=== PATIENT | female | born 2000 | race African-American/Black ===

== ENCOUNTER 2019-08-12 17:25 | Emergency (ER) | payer OTHER ==
[2019-08-12 17:38] VITALS: BP 154/118
--- NOTE | 2019-08-12 18:22 | ER Document Report ---
HPI - HPI Time Seen by Provider: 08/12/19 18:12 Pain Level: 0 Context: Patient is a G1, P0, 22-week 19-year-old female who presents emergency department wanting an ultrasound for a regular check of OB. Patient states that she had 1 small pain to the left side of her abdomen yesterday. States that has gone away. Denies any pain at this time. Denies any vaginal discharge, bleeding, dysuria, or any other symptoms. Patient reported that she was in the emergency department for routine ultrasound. - ROS Systems Reviewed and Negative: Yes All other systems reviewed and negative - CONSTITUTIONAL Constitutional: DENIES: Fever, Chills - EENT EENT: DENIES: Sore Throat, Ear Pain, Nasal Drainage-Clear, Congestion, Eye problems - NEURO Neurology: DENIES: Headache, Weakness, Vision blurred, Dizzinesss / Vertigo - CARDIOVASCULAR Cardiovascular: DENIES: Chest pain - RESPIRATORY Respiratory: DENIES: Trouble Breathing, Coughing - GASTROINTESTINAL Gastrointestinal: DENIES: Abdominal Pain, Nausea, Patient vomiting - URINARY Urinary: DENIES: Dysuria, Urgency, Frequency - REPRODUCTIVE LMP: 2019 Reproductive: REPORTS: : - MUSCULOSKELETAL Musculoskeletal: DENIES: Extremity pain - DERM Skin Color: Normal Skin Problems: None Past Medical History - General Information source: Patient - Social History Smoking Status: Never Smoker Chew tobacco use (# tins/day): No Frequency of alcohol use: None Drug Abuse: None Family History: Reviewed & Not Pertinent Vertical Provider Document - CONSTITUTIONAL Agree With Documented VS: Yes Exam Limitations: No Limitations General Appearance: No Apparent Distress - HEENT HEENT: Atraumatic, Normocephalic, PERRLA - RESPIRATORY Respiratory: Breath Sounds Normal, No Respiratory Distress - CARDIOVASCULAR Cardiovascular: Regular Rate, Regular Rhythm Pulses: Normal: Radial - GI/ABDOMEN Gastrointestinal: Abdomen Soft, Abdomen Non-Tender Notes: Appears about 22 weeks . - MUSCULOSKELETAL/EXTREMETIES Musculoskeletal/Extremeties: FROM - NEURO Level of Consciousness: Awake, Alert, Appropriate Motor/Sensory: No Motor Deficit, No Sensory Deficit - DERM Integumentary: Warm, Dry, No Rash Course - Re-evaluation Re-evalutation: 08/12/19 Patient presenting to the emergency department for an ultrasound of her abdomen. She does admit to feeling fluttering. She is primigravida. Advised her that she needs to follow-up with her [facility] for an ultrasound. She is in agreement with this plan. Follow-up precautions were given. Verbal discharge instructions were given to the patient. They verbalized understanding. They are stable for discharge. - Vital Signs Vital signs: Temp Pulse Resp BP Pulse Ox 99.3 F 65 16 154/118 H 100 08/12/19 17:35 08/12/19 17:35 08/12/19 17:35 08/12/19 17:35 08/12/19 17:35 Discharge - Discharge Clinical Impression: 22 weeks gestation of Condition: Stable Disposition: HOME, SELF-CARE Additional Instructions: You were seen today in the emergency department for an ultrasound. Please call your primary care provider to see where you were referred for [facility]. If you are unable to follow-up with them, you can follow[facility] with [facility] here in [place] for regular care. The small pain you felt yesterday is called [place] contractions. This is normal during . Referrals: [facility] [Provider Group] - Follow up as needed
== END 2019-08-12 18:27 | disposition home or self-care (01) ==
LOC: ER 17:25
DX: Z34.02 Encounter for supervision of normal first pregnancy, second trimester (principal); Z3A.22 22 weeks gestation of pregnancy
CPT/HCPCS: 99283